=== PATIENT | female | born 1935 | race Caucasian/White ===

== ENCOUNTER 2024-10-08 16:20 | Outpatient (CLI) | payer MEDICARE, SELFPAY ==
[2024-10-08 16:56] LABS: Glucose Urine UA Negative (Normal); Nitrate Urine Negative (Negative); Specific Gravity, Urine 1.007 (1.005-1.030)
[2024-10-08 17:00] LABS: Add Urine Microscopic? YES
== END 2024-10-08 16:21 | disposition home or self-care (01) ==
PROVIDERS: PCP Family Medicine; Visit Provider Family Medicine
DX: N39.0 Urinary tract infection, site not specified (principal)
CPT/HCPCS: 81001; 87086

== ENCOUNTER 2024-10-10 12:48 | Observation (INO) | payer MEDICARE, SELFPAY ==
--- OUTSIDE RECORDS SUMMARY | 2023-12-31 04:00 | XMS_ITS ---
Author Organization [facility] Address [address] [facility] [place] [address] Care Team Providers Care City Planning Engineer Name Role Phone Rachelle Almaraz APRN Primary Care Provider Unavail able Jeny Blair Unavailable [phone] Migration, Provider Unavailable Unavailable REASON FOR VISIT EMR-Kavon Encounters Encounter Location Date Provider Diagnosis Migrated_Facility 0 0 12/31/2023 Provider Migration Plan Of Treatment No Information Progress Notes * Shannan FUNESDOB:[birth year] (89 yo F)Acc No.[id number]:12/31/2023 Patient: Shannan BELL :1935 A ge:88 Y S ex:Female [place] [place] [address] Subjective: * Chief Complaints: * E MR-Kavon * * Date:
--- OUTSIDE RECORDS SUMMARY | 2024-01-01 04:00 | XMS_ITS ---
Author Organization [facility] Address [address] [place] [address] Care Team Providers Care Brazing Machine Operator Automatic Name Role Phone Rachelle Almaraz APRN Primary Care Provider Unavail able Jeny Blair Unavailable [phone] Migration, Provider Unavailable Unavailable Allergies Allergen (clinical drug ingredient) Drug/Non Drug Allergy documented on EMR Reaction Allergy Type Onset Date Status Demerol HCl (meperidine) Unknown Drug Allergy Active codeine Codeine vomiting Drug Allergy Active meperidine Meperidine vomiting Drug Allergy Activ e morphine Morphine vomiting Drug Allergy Active REASON FOR VISIT EMR-Kavon Encounters Encounter Location Date Provider Diagnosis Migrated_Facility 0 0 01/01/2024 Provider Migration Plan Of Treatment No Information Progress Notes * Shannan FUNESDOB:[birth year] (89 yo F)Acc No.[id number]:01/01/2024 Patient: Shannan BELL :1935 A ge:88 Y S ex:Female Address: [address] [place] [address] Subjective: * Chief Complaints: * E MR-Kavon * Allergies: D emerol HCl (meperidine): AllergyMorphine: vomiting - Allergy - Criticality HighCodeine: vomiting - Allergy - Criticality HighMeperidine: vomiting - Allergy - Criticality High * * Date:
[2024-10-10] VITALS (10 sets, daily range): BP systolic 61–129; BP diastolic 37–99; PULSE 60–76; RESP 17–20; TEMP 36.8; O2SAT 91–100; BMI 27.3
--- NOTE | 2024-10-10 12:55 | ECG_ITS ---
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 Measurements Intervals Thomson Rate: 62 P: 0 [place]: 0 QRS: -28 QRSD: 114 T: 56 QT: 477 QTc: 485 Interpretive Statements Possible sinus rhythm BORDERLINE LEFT AXIS DEVIATION [QRS AXIS < -20] MODERATE INTRAVENTRICULAR CONDUCTION DELAY [110+ ms QRS DURATION] VOLTAGE CRITERIA FOR LVH [MEETS CRITERIA IN ONE OF: R(aVL), S(V1), R(V5), R(V5/V6)+S(V1)] NONSPECIFIC ST & T-WAVE ABNORMALITY PROLONGED QT INTERVAL No previous ECG available for comparison electrical artifacts, due to repeat the study Electronically Signed On 10-10-2024 22:49:04 CDT by Altaf Dawkins M.D. [email or web address] [id number]
--- NOTE | 2024-10-10 12:55 | XR_ITS ---
WS: [id number] XR chest 1V portable [id number] REASON FOR EXAM: sob FINDINGS: No previous examination for comparison. Mild tortuosity of the thoracic aorta. The heart is at the upper limits of normal in size. There are reticular interstitial opacities and mild parabronchial cuffing in both lower lungs of unknown chronicity. There is calcified granulomatous disease bilaterally with multiple calcified nodules in the left lower lung. There is atelectasis and consolidated lung along the left hemidiaphragm contour and blunting of the left costophrenic angle. Moderate dextroscoliosis of the thoracic spine with moderate degenerative spondylosis. XR/XR chest 1V portable [id number] IMPRESSION: Chest and pleural changes of unknown chronicity. Possibly acute or subacute con gestive failure, left lower lung pneumonitis.
--- OUTSIDE RECORDS SUMMARY | 2024-10-10 12:56 | XMS_ITS | Patient Health Record ---
Author Organization [facility] Address [address] [place] [address] Care Team Providers Care Residential Carpet Installer Name Role Phone Rachelle Almaraz APRN Primary Care Provider Unavail able Jeny Blair Unavailable [phone] Migration, Provider Unavailable Unavailable Allergies Allergen (clinical drug ingredient) Drug/Non Drug Allergy documented on EMR Reaction Allergy Type Onset Date Status Demerol HCl (meperidine) Unknown Drug Allergy Active codeine Codeine vomiting Drug Allergy Active meperidine Meperidine vomiting Drug Allergy Activ e morphine Morphine vomiting Drug Allergy Active Reason For Referral No Information Medications Medication SIG (Take, Route, Frequency, Duration) Notes Start Date End Date Status Torsemide 20 MG Tablet 1 tablet Orally twice daily Active metOLazone 2.5 MG Tablet 1 tablet Orally Once a day Active Symbicort 160-4.5 MCG/ACT Aerosol 2 puffs Inhalation Twice a day Active Acetaminophen PM 500-25 MG Tablet 1 tablet at bedtime as needed Orally Once a day Active Albuterol Sulfate (2.5 MG/3ML) 0.083% Nebulization Solution as directed Orally as needed Active Lyrica 50 MG Capsule 1 capsule Orally every 6 hrs as needed Not-Taking Levothyroxine Sodium 200 MCG Capsule 1 tablet in the morning on an empty stomach Orally Once a day Active PROzac 20 MG Capsule 1 capsule Orally Once a day Active Klor-Con 10 10 MEQ Tablet Extended Release 1 tablet with food Orally Twice a day Active Metoprolol Tartrate 25 MG Tablet 1 tablet with food Orally once a day Active Colestid 1 GM Tablet 2 tablets Orally Once a day; Duration: 30 day(s) Active Protonix 40 MG Tablet Delayed Release 1 tablet Orally Once a day Active Hydroxychloroquine Sulfate 200 MG Tablet as directed Orally BID Active Xanax 0.5 MG Tablet 1 tablet Orally once a day as needed Active Social History Tobacco Use: Social History Observation Description Date Details (start date - stop date) Never Smoker NA - NA Social History Drugs/Alcohol: Social Info Question Answer Notes Alcohol Screen (Audit-C) Did you have a drink containing alcohol in the past year? Yes How often did you have a drink containing alcohol in the past year? Monthly or less (1 point) How many drinks did you have on a typical day when you were drinking in the past year? 1 or 2 drinks (0 point) How often did you have 6 or more drinks on one occasion in the past year? Never (0 point) Points 1 Interpretation Negative Tobacco Use: Social Info Question Answer Notes xTobacco Use/Smoking Are you a nonsmoker Additional Details Category Social Info Options Details Miscellaneous: Marital status: Children: x2 : no serv ice Level of Education: Finished hig h school Problems Problem Type SNOMED Code ICD Code Onset Dates Problem Status W/U Status Risk Notes Problem Chronic kidney disease due to hypertension (386043606669065) Hypertensive chronic kidney disease with stage 1 through stage 4 chronic kidney disease, or unspecified chronic kidney disease (I12.9) Active confirmed Problem Benign hypertension (48865132) Hypertension, benign (I10) Active confirmed Problem Chronic blood loss anemia (231775315) Chronic blood loss anemia (D50.0) Active confirmed Problem History of nutritional deficiency (16954241331062) History of vitamin D deficiency (Z86.39) Active confirmed Problem Hypoalbuminemia (671165417) Hypoalbuminemia (E88.09) Active confirmed Problem Aortic valve sclerosis (97573886) Aortic valve sclerosis (I35.8) Active confirmed Problem 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 confirmed Problem Chronic kidney disease stage 3B (disorder) (881182230) Chronic kidney disease, stage 3b (N18.32) Active confirmed Problem Tricuspid valve disorder, non-rheumatic (135417648) 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) Active confirmed Problem Malignant essential hypertension (58755848) Essential hypertension, malignant (401.0) 2012 Active confirmed [id number] nomed Description:M alignant essential hypertension Encounters Encounter Location Date Provider Diagnosis Migrated_Facility 0 0 01/01/2024 Provider Migration Migrated_Facility 0 0 12/31/2023 Provider Migration Plan Of Treatment No Information Insurance Providers Payer Name Payer Address Payer Phone Subscriber Number Group Number Insured Name Patient Relationship to Insured Coverage Start Date Coverage End Date [facility] [email or web address] [address] [address] [place] [address] [id number] Shannan Bernal Self - patient is the insured Medical (General) History Medical History History ICD Code measles, mumps and chicken pox as a chil d hx pneumonia heart disease arthritis hx anemia hx bladder infections hx breast cancer back trouble hypertension hemorrhoids asthma hx bronchitis anxiety cataracts congestive heart failure gerd hypothyroidism irritable bowel syndrome sleep apnea thyroid goiter COVID (10/25) Surgical History Surgery Date(Month/Year) bilateral mastectomy hysterectomy tonsillectomy appendectomy carpal tunnel cholecystectomy thryoidectomy Hospitalization History Reason Date(Month/Year) see surgical hx
--- OUTSIDE RECORDS SUMMARY | 2024-10-10 12:56 | XMS_ITS | CCD ---
Author Name Interface, [id number] lity Address [facility] [place] [address] [facility] Address [address] [place] [address] Care Team Providers Care Occupational Therapist Assistant Name Role Phone Soledad MCNULTY, Meliton Unavailable Unavailable Allergies and Adverse Reactions Reason for Visit Medications Problems Social History
--- OUTSIDE RECORDS SUMMARY | 2024-10-10 12:56 | XMS_ITS ---
Author Name Interface, [id number] lity Address [facility] [place] [address] [facility] Address [address] [place] [address] Allergies and Adverse Reactions Plan Reason for Visit Encounters Medications Problems
--- OUTSIDE RECORDS SUMMARY | 2024-10-10 12:57 | XMS_ITS | Patient Health Record ---
Author Organization [facility] Address [address] [place] [id number] Care Team Providers Care Charging Car Operator Name Role Phone Non [facility] Provider, Provider Primary Care P Rachelle Morgan Unavailable [phone] Allergies Allergen (clinical drug ingredient) Drug/Non Drug Allergy documented on EMR Reaction Allergy Type Onset Date Status codeine Codeine Sulfate Unknown Drug Allergy A ctive meperidine Demerol Unknown Drug Allergy Active morphine Morphine Sulfate Unknown Drug Allergy Active Reason For Referral No Information Medications Medication SIG (Take, Route, Frequency, Duration) Notes Start Date End Date Status Pregabalin 50 MG 1 capsule Orally Once a day; Duration: 30 days 08/11/2020 Active Cefuroxime Axetil 500 MG 1 tablet Orally every 12 hrs; Duration: 7 day(s) 11/17/2020 Active cyanocobalamin 1000 mcg 1 ml IM Monthly; Duration: 90 days Active Levothyroxine Sodium 200 MCG TAKE 1 TABLET BY MOUTH EVERY MORNING ON AN EMPTY STOMACH.; Duration: 90 Active Metoprolol Tartrate 25 MG take one tablet by mouth twice daily with food Orally Twice a day; Duration: 90 days taking once daily Active AeroChamber Plus Enrike-Vu w/Mask - as directed orally daily; Duration: 30 days 08/23/2019 Active Albuterol Sulfate HFA 108 (90 Base) MCG/ACT 2 puffs as needed Inhalation every 6 hrs; Duration: 30 days PRN 02/05/2019 Active Torsemide 20 MG as directed Orally takes 2 tabs QAM per cardiology Active metolazone 2.5 MG 1 tablet Orally Once a day; Duration: 90 days QD PRN per ABDULAZIZ Ferrara Active Potassium Chloride ER 10 MEQ 2 tablets with food Orally Twice a day; Duration: 30 day(s) 08/06/2020 Active Budesonide 0.25 MG/2ML 2 ml Inhalation Once a day; Duration: 90 days Active Acetaminophen ER 650 MG 2 tablets as needed Orally every 8 hrs; Duration: 30 days PRN 04/09/2019 Active dexAMETHasone 6 MG 1 tablet Orally Once a day; Duration: 10 day(s) 10/27/2020 Active LORazepam 0.5 MG 1 tablet at bedtime as needed Orally Once a day; Duration: 30 days 10/08/2020 Active Sleep Aid 25 MG 1 tablet at bedtime as needed Orally Once a day PRN Active Gabapentin 300 MG 1 capsule Orally three times a day; Duration: 90 days no longer takig 06/10/2020 Not-Taking Protonix 40 MG 1 tablet daily orally 30 days Orally daily; Duration: 90 days Active Lidocaine HCl 4 % as directed Externally Twice a day; Duration: 30 days 10/31/2020 Active Immunizations Vaccine Route Administration Date Status Comme nts Pneumococcal 13-Private Stock IM Intramuscular 01/09/2019 Administered Pneumococcal (Pneumovax 23) IM Intramuscular 09/22/2020 Administered Flu Vac Quad 0.5 PRIVATE IM Intramuscular 01/09/2019 Administered Coronavirus Moderna #1 Unknown 04/15/2020 Administered 1st dose Covid vaccine given at [facility]. Moderna Coronavirus Moderna #1 Unknown 05/13/2020 Administ[facility] Moderna Social History Tobacco Use: Social History Observation Description Date Details (start date - stop date) Never Smoker NA - NA Sex Assigned At : Social History Observation Description Sex Assigned At Female - Question Answer Notes Did you have a drink contain ing alcohol in the past year? Yes How often did you have a dri nk containing alcohol in the past year? Two to four times a month (2 points) How often did you have six o r more drinks on one occasion in the past year? Never (0 points) Points 2 Interpretation Negative [place] Drug Questionnaire Question Answer Notes Have you used drugs other th an those for medical reasons in the past 12 months? No Do you smoke for age 13 and up Question Answer Notes Are you a: never smoker Smokeless Tobacco Question Answer Notes Tobacco use other than smoking No Have you ever had an STD Question Answer Notes Have you ever had an STD No Diabetic Retinal Eye Exam Question Answer Notes Date of exam 04/03/2020 CAGE-AID Questionnaire (2018 Edition)- Question Answer Notes Have you ever felt that you ought to cut down on your drinking or drug use? No Have people annoyed you by criticizing your drin medina or drug use? No Have you ever felt bad or guilty about your drin medina or drug use? No Have you ever had a drink or used drugs first thing in the morning to steady your nerves or to get rid of a hangover? No CAGE-AID Score 1 Problems Problem Type SNOMED Code ICD Code Onset Dates Problem Status W/U Status Risk Notes Problem Osteoarthritis (703131757) Osteoarthritis (M19.90) Active confirmed Problem Vitamin D deficiency (11376834) Vitamin D deficiency (E55.9) Active confirmed Problem Essential hypertension (95552717) Essential hypertension (I10) Active confirmed Problem Obstructive sleep apnea syndrome (26119285) LAURE (obstructive sleep apnea) (G47.33) Active confirmed Problem Irritable bowel syndrome with diarrhea (382846231) Irritable bowel syndrome with diarrhea (K58.0) Active confirmed Problem Anxiety (11622223) Anxiety (F41.9) Active confi rmed Problem Hyperlipidemia (61476735) Other and unspecified hyperlipidemia (E78.5) Active confirmed Problem Benign essential hypertension (9465040) Benign essential hypertension (I10) Active confirmed Problem Peripheral vascular disease (146535951) PAD (peripheral artery disease) (I73.9) Active confirmed Problem Hypothyroidism (30590689) Hypothyroidism, unspecified (E03.9) Active confirmed Problem Macrocytic anemia (45115006) Macrocytic anemia (D53.9) Active confirmed Problem Pernicious anemia (38057257) Pernicious anemia (D51.0) Active confirmed Problem Exacerbation of moderate persistent asthma (disorder) (548791808) Moderate persistent asthma with acute exacerbation (J45.41) Active confirmed Problem Supraventricular tachycardia (9462871) Supraventricular tachycardia (I47.1) Active confirmed Problem Vitamin D deficiency (64279002) Low vitamin D level (E55.9) Active confirmed Problem Esophageal reflux (639050260) Esophageal reflux (K21.9) Active confirmed Problem Chronic systolic heart failure (191576497) Chronic systolic congestive heart failure (I50.22) Active confirmed Problem Postsurgical hypothyroidism (87234723) 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) Active confirmed Problem Midline cystocele (558192417) Bladder prolapse, female, acquired (N81.10) Active confirmed Problem Iron deficiency anemia due to chronic blood loss (283567032) Iron deficiency anemia due to chronic blood loss (D50.0) Active confirmed Problem Moderate recurrent major depression (07237578) Moderate episode of recurrent major depressive disorder (F33.1) Active confirmed Problem Adjustment disorder (39158845) Situational stress (F43.9) Active confirmed Problem Scoliosis (722292326) Scoliosis of thoracolumbar spine, unspecified scoliosis type (M41.9) Active confirmed Problem Chronic diastolic heart failure (792011458) Chronic diastolic heart failure (I50.32) Active confirmed Problem Uncomplicated severe persistent asthma (641766125) Severe persistent asthma, unspecified whether complicated (J45.50) Active confirmed Problem Diastolic heart failure (129947887) Diastolic congestive heart failure, unspecified HF chronicity (I50.30) Active confirmed Problem Lumbosacral spondylosis without myelopathy (78567382) 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) Active confirmed Problem Lumbosacral spondylosis without myelopathy (74650181) Spondylosis of lumbosacral region with spinal osteoarthritis complication (M47.817) Active confirmed Problem Band neutrophil count above reference range (781033704) Increased band cell count (D72.825) Active confirmed Plan Of Treatment No Information Insurance Providers Payer Name Payer Address Payer Phone Subscriber Number Group Number Insured Name Patient Relationship to Insured Coverage Start Date Coverage End Date [facility] [address] [address] [place] [address] [id number] Shannan Bernal Self - patient is the insured Medications Administered Medication Instructions Date of Administration Dosage Notes Cyanocobalamin 2016 1000 ug Cyanocobalamin 06/09/2018 1000 mg Cyanocobalamin 07/14/2018 1000 ug Cyanocobalamin 10/03/2018 1000 ug Cyanocobalamin 04/19/2019 1000 ug Cyanocobalamin 05/02/2019 1000 ug Cyanocobalamin 05/08/2019 1000 ug Cyanocobalamin 09/14/2019 1000 ug Cyanocobalamin 09/18/2019 1000 ug Cyanocobalamin 09/19/2019 1000 ug Cyanocobalamin 09/20/2019 1000 ug Cyanocobalamin 09/24/2019 1000 ug Cyanocobalamin 09/25/2019 1000 ug Cyanocobalamin 09/26/2019 1000 ug Cyanocobalamin 10/05/2019 1000 ug Exp date Cyanocobalamin 10/08/2019 1000 ug patient brought medication Exp Date 06/25 Cyanocobalamin 10/15/2019 1000 ug Cyanocobalamin 10/22/2019 1000 ug LOT#: [id number] Exp Date: 06/2020 Cyanocobalamin 10/30/2019 1 mL Cyanocobalamin 11/23/2019 1000 ug Cyanocobalamin 12/28/2019 1000 ug Cyanocobalamin 02/22/2020 1000 ug Cyanocobalamin 03/25/2020 1000 ug Lot#: [id number] exp date: 06/2020 Cyanocobalamin 05/07/2020 1000 ug Lot: [id number] Exp Date: 06/2020 Cyanocobalamin 06/20/2020 1000 ug Lot# [id number] , exp 04/2021 Decadron LA 8mg 11/16/2013 8 mg Decadron LA 8mg 04/25/2014 8 mg Decadron LA 8mg 05/29/2015 8 mg Decadron LA 8mg 02/05/2019 8 mg Decadron SA 4mg/ml (dexamethasone) 11/16/2013 4 mg Decadron SA 4mg/ml (dexamethasone) 04/25/2014 4 mg Decadron SA 4mg/ml (dexamethasone) 05/29/2015 4 mg Decadron SA 4mg/ml (dexamethasone) 01/17/2018 4 mg Decadron SA 4mg/ml (dexamethasone) 12/18/2018 4 mg Decadron SA 4mg/ml (dexamethasone) 02/05/2019 4 mg Decadron SA 4mg/ml (dexamethasone) 08/23/2019 4 mg Decadron SA 4mg/ml (dexamethasone) 11/05/2019 4 mg Decadron SA 4mg/ml (dexamethasone) 12/27/2019 4 mg Depo Medrol 40mg 01/17/2018 40 mg Depo Medrol 40mg 08/23/2019 40 mg Depo Medrol 80mg 12/18/2018 80 mg Depo Medrol 80mg 11/05/2019 80 mg Depo Medrol 80mg 12/27/2019 80 mg Furosemide (Lasix) 11/06/2019 20 mg Furosemide (Lasix) 11/06/2019 20 mg Furosemide (Lasix) 12/28/2019 20 mg Furosemide (Lasix) 12/28/2019 20 mg Furosemide (Lasix) 01/21/2020 2 mL Furosemide (Lasix) 01/21/2020 2 mL Furosemide (Lasix) 03/14/2020 20 mg Furosemide (Lasix) 03/14/2020 20 mg Lidocaine 1% 11/16/2013 1 mL Lidocaine 2% 02/05/2019 2 mL Rocephin 500 mg (CEFTRIAXONE) 11/16/2013 500 mg Rocephin 500 mg (CEFTRIAXONE) 02/05/2019 500 mg Toradol 04/25/2014 60 mg Toradol 06/16/2015 60 mg Toradol 01/17/2018 60 mg Toradol 02/15/2018 60 mg Toradol 2018 60 mg Toradol 12/18/2018 60 mg Vit B12 (CYANOCOBALAMIN) 10/09/2018 1 mL Medical (General) History Medical History History ICD Code bladder prolapse bilateral mastectomy diarrhea Heart Cath normal 04/2018 pneumonia hypokalemia Surgical History Surgery Date(Month/Year) tonsillectomy 194 appendicitis 1955 partial hysterectomy 1964 bilateral mastectomy precancerous 1989 gallbladder thyroidectomy 1979 heart cath 03/27/2018 Hospitalization History Reason Date(Month/Year) childbirth tonsillectomy 194 abdominal pain pneumonia @ [facility] 02/2019 Hypokalemia @ [facility] 02/2019 partial hysterectomy 1964 bilateral mastectomy 1990 thyroidectomy 1980 hypokalemia, hyponatremia, shingles- [facility] 2020 hypokalemia, hyponatremia- [facility] 07/2020
[2024-10-10 13:15] LABS: Hematocrit 27.4 % (36-47); Hemoglobin 9.10 g/dL (11.27-16.99); Mean Corpuscular HGB Conc 33.2 g/dL (30-55); Mean Corpuscular Hemoglobin 33.7 pg (27-33); Mean Corpuscular Volume 101.5 fl (85-98); Nucleated Red Blood Cells % 0 %; Platelet Count 268 10^3/cmm (157-399); Red Blood Count 2.70 10^6/uL (3.85-5.65); White Blood Count 7.89 10^3/uL (3.29-11.43)
[2024-10-10 13:31] LABS: Alanine Aminotransferase 6 U/L (0-33); Albumin Level 3.6 g/dL (3.5-5.2); Alkaline Phosphatase 138 U/L (35-105); Anion Gap 20.3 (5-19); Aspartate Amino Transferase 21 U/L (0-32); Blood Urea Nitrogen 27 mg/dL (8-23); Calcium 7.2 mg/dL (8.5-10.5); Carbon Dioxide 27 mmol/L (22-29); Chloride 80 mmol/L (98-107); Creatinine Clr Calc Pharmacy 13.4617; Globulin 2.8 g/dL (1.3-4.6); Glucose 131 mg/dL (65-115); NT Pro B Type Natriuretic Pept 3882 pg/mL (0-450); Osmolality Calculated 265 mOsm/kg (285-295); Potassium 3.3 mmol/L (3.5-5.1); Sodium 124 mmol/L (136-145); Total Protein 6.4 g/dL (6.6-8.7)
--- NOTE | 2024-10-10 13:31 | W.ED.SOB ---
HPI - SOB/Dyspnea General: Chief Complaint: Shortness of Breath/Dyspnea Stated Complaint: SOB Time Seen by Provider: 10/10/24 12:53 Source: patient Mode of arrival: ambulatory Limitations: no limitations History of Present Illness: HPI Narrative: 89-year-old female who is here from [place] has a history of COPD and is currently on hospice. I did speak to patient's hospice nurse along with EMS she is on oxygen at baseline she has had some slight decline in mental status patient here does respond to verbal stimuli is able to tell me her name not really able answer any questions no known recent fever cough Related Data Home Medications ?Medication ?Instructions ?Recorded ?Confirmed albuterol sulfate 90 mcg/actuation 2 puff inhalation Q6H PRN 10/10/24 10/10/24 aerosol inhaler Shortness Of Breath budesonide-formoterol HFA 160 2 inh inhalation DAILY 10/10/24 10/10/24 mcg-4.5 mcg/actuation aerosol inhaler (Symbicort) cyanocobalamin (vitamin B-12) 1,000 mcg IM Q30D 10/10/24 10/10/24 1,000 mcg/mL injection solution dicyclomine 10 mg capsule 10 mg PO Q6H PRN Abdominal Pain 10/10/24 10/10/24 diphenoxylate-atropine 2.5 1 tab PO TID PRN Diarrhea 10/10/24 10/10/24 mg-0.025 mg tablet fluoxetine 40 mg capsule 40 mg PO DAILY 10/10/24 10/10/24 hydromorphone 2 mg tablet 2 mg PO Q4H PRN Pain 10/10/24 10/10/24 hyoscyamine sulfate 0.125 mg tablet 0.125 mg PO Q4H PRN Abdominal Pain 10/10/24 10/10/24 ipratropium 0.5 mg-albuterol 3 mg 3 ml inhalation QID PRN Shortness 10/10/24 10/10/24 (2.5 mg base)/3 mL nebulization Of Breath soln levocetirizine 5 mg tablet 5 mg PO DAILY 10/10/24 10/10/24 levothyroxine 200 mcg tablet 200 mcg PO DAILY 10/10/24 10/10/24 lidocaine 4 % topical patch See Rx Instructions .Route .COMPLEX 10/10/24 10/10/24 (Lidocaine Pain Relief) lorazepam 0.5 mg tablet 0.5 mg PO TID PRN Anxiety 10/10/24 10/10/24 lorazepam 2 mg/mL oral concentrate 0.5 mg sublingual Q4H PRN Anxiety 10/10/24 10/10/24 metoprolol tartrate 25 mg tablet 12.5 mg PO DAILY 10/10/24 10/10/24 morphine concentrate 100 mg/5 mL See Rx Instructions .Route 10/10/24 10/10/24 (20 mg/mL) oral solution .COMPLEX PRN Pain ondansetron HCl 4 mg tablet 4 mg PO Q4H PRN Nausea 10/10/24 10/10/24 pantoprazole 40 mg tablet,delayed 10 mg PO DAILY 10/10/24 10/10/24 release pregabalin 100 mg capsule 200 mg PO QPM 10/10/24 10/10/24 sennosides 8.6 mg-docusate sodium 1 - 2 tab PO DAILY PRN Constipation 10/10/24 10/10/24 50 mg tablet (Senna Plus) tizanidine 4 mg tablet 4 mg PO Q8H 10/10/24 10/10/24 torsemide 20 mg tablet 40 mg PO DAILY 10/10/24 10/10/24 Allergies Allergy/AdvReac Type Severity Reaction Status Date / Time codeine Allergy Unknown Verified 10/10/24 13:35 morphine Allergy Unknown Verified 10/10/24 13:36 Review of Systems General: Reports: ROS unobtainable due to mental status Physical Exam Const: COMMON NORMALS: negative for patient oriented x3 HENMT: COMMON NORMALS: normocephalic and atraumatic HEAD & SCALP: normocephalic and atraumatic Eye: COMMON NORMALS: conjunctivae normal CONJUNCTIVA: Yes conjunctivae normal Neck/C-Spine: COMMON NORMALS: full ROM and supple Chest: COMMONS NORMALS: normal inspection of the chest Resp: COMMON NORMALS: No retractions and No use of accessory muscles AUSCULTATION: wheezes Cardio: COMMON NORMALS: regular rate, regular rhythm and No murmurs present (Cardio) RATE: regular rate RHYTHM: regular rhythm Extremity: COMMON NORMALS: normal to inspection and full ROM Neuro: COMMON NORMALS: moves all extremities and no focal motor deficits; negative for patient oriented x3 Psych: COMMON NORMALS: cooperative Skin: COMMON NORMALS: no rashes or lesions noted and no wounds GENERAL SKIN EXAM: no rashes or lesions noted Course Vital Signs: Vital signs: Vital Signs Temperature 98.3 F 10/10/24 12:56 Pulse Rate 74 10/10/24 14:52 Respiratory Rate 18 10/10/24 13:24 Blood Pressure 106/59 10/10/24 14:52 Pulse Oximetry 95 10/10/24 14:52 Oxygen Delivery Me thod Nasal Cannula 10/10/24 14:52 Oxygen Flow Rate 3 10/10/24 14:52 MDM - SOB/Dyspnea Medical Decision Making Patient presents here with altered mental status originally she is now awake alert and able answer all my questions she is hyponatremic and acute kidney injury likely causing some of her confusion she is now ANO x 4 I did discuss with her and family at length they state they are they not want her on hospice at this time and want her admitted to treat her hyponatremia patient states she does not want any extensive procedures though does want to be DNR if she is on Levophed this time she did not want a central line Medical Records I reviewed the patient's medical records. Lab Data I reviewed the patient's lab results. 10/10/24 12:59 10/10/24 12:59 Labs/Radiology: Radiology Impressions Chest X-Ray 10/10/24 12:55 IMPRESSION: Chest and pleural changes of unknown chronicity. Possibly acute or subacute congestive failure, left lower lung pneumonitis. Head CT 10/10/24 13:38 IMPRESSION: 1. No acute intracranial hemorrhage or edema. 2. Mild cerebral and cerebellar atrophy and small vessel disease. Laboratory Results WBC 7.89 10^3/uL (3.29-11.43) 10/10/24 12:59 RBC 2.70 10^6/uL (3.85-5.65) L 10/10/24 12:59 Hgb 9.10 g/dL (11.27-16.99) L 10/10/24 12:59 Hct 27.4 % (36-47) L 10/10/24 12:59 MCV 101.5 fl (85-98) H 10/10/24 12:59 MCH 33.7 pg (27-33) H 10/10/24 12:59 MCHC 33.2 g/dL (30-55) 10/10/24 12:59 RDW 16.8 % (12.1-15.1) H 10/10/24 12:59 Plt Count 268 10^3/cmm (157-399) 10/10/24 12:59 MPV 11.9 fL (7.4-10.4) H 10/10/24 12:59 Neut % (Auto) 68.5 % 10/10/24 12:59 Lymph % (Auto) 14.6 % 10/10/24 12:59 [place] % (Auto) 14.4 % 10/10/24 12:59 Eos % (Auto) 0.1 % 10/10/24 12:59 Baso % (Auto) 1.3 % 10/10/24 12:59 Neut # (Auto) 5.40 10^3/uL (1.8-7.7) 10/10/24 12:59 Lymph # (Auto) 1.2 10^3/uL (0.8-4.8) 10/10/24 12:59 [place] # (Auto) 1.1 10^3/uL (0.2-0.9) H 10/10/24 12:59 Eos # (Auto) 0.0 10^3/uL (0.0-0.8) 10/10/24 12:59 Baso # (Auto) 0.1 10^3/uL (0.0-0.1) 10/10/24 12:59 Nucleated RBC % (auto) 0 % 10/10/24 12:59 Nucleated RBCs # 0.0 /100WBC 10/10/24 12:59 Specimen Type Arterial 10/10/24 13:23 Sample Site Brachial, right 10/10/24 13:23 ABG pH 7.40 (7.35-7.45) 10/10/24 13:23 ABG pCO2 46.5 mmHg (35-45) H 10/10/24 13:23 ABG pO2 98.1 mmHg (80.0-100.0) 10/10/24 13:23 ABG HCO3 29.1 mmol/L (22-26) H 10/10/24 13:23 ABG Base Excess 3.8 mmol/L (-2.0-2.0) H 10/10/24 13:23 Reza Test Pos 10/10/24 13:23 Hematocrit 27.1 % (37-47) L 10/10/24 13:23 Hgb O2 Saturation 95.7 % (95-100) 10/10/24 13:23 Carboxyhemoglobin 1.3 %THgb (0.4-20.1) 10/10/24 13:23 Methemoglobin 1.1 % (0.4-1.5) 10/10/24 13:23 Total Hemoglobin 8.8 g/dL (12-16) L 10/10/24 13:23 O2 Delivery Device Nc 10/10/24 13:23 O2 Liters/Min 4.0 % 10/10/24 13:23 Diesel Mechanic Helper ID [place] 10/10/24 13:23 Sodium 124 mmol/L (136-145) L 10/10/24 12:59 Potassium 3.3 mmol/L (3.5-5.1) L 10/10/24 12:59 Chloride 80 mmol/L (98-107) L 10/10/24 12:59 Carbon Dioxide 27 mmol/L (22-29) 10/10/24 12:59 Anion Gap 20.3 (5-19) H 10/10/24 12:59 BUN 27 mg/dL (8-23) H 10/10/24 12:59 Creatinine 3.3 mg/dL (0.5-0.9) H 10/10/24 12:59 GFR Calculation Not Reportable 10/10/24 12:59 Glucose 131 mg/dL (65-115) H 10/10/24 12:59 Calculated Osmolality 265 mOsm/kg (285-295) L 10/10/24 12:59 Calcium 7.2 mg/dL (8.5-10.5) L 10/10/24 12:59 Total Bilirubin 0.6 mg/dL (0.15-1.2) 10/10/24 12:59 AST 21 U/L (0-32) 10/10/24 12:59 ALT 6 U/L (0-33) 10/10/24 12:59 Alkaline Phosphatase 138 U/L (35-105) H 10/10/24 12:59 NT-Pro-B Natriuret Pep 3882 pg/mL (0-450) H 10/10/24 12:59 Total Protein 6.4 g/dL (6.6-8.7) L 10/10/24 12:59 Albumin 3.6 g/dL (3.5-5.2) 10/10/24 12:59 Globulin 2.8 g/dL (1.3-4.6) 10/10/24 12:59 All radiology interpretation(s) finalized by discharge EKG Data EKG 1: I personally reviewed and interpreted this EKG as follows: EKG Interpretation Date: 10/10/24 EKG interpretation time: 13:02 Interpretation: nsr hr [address] elevation qrs 114 qtc 481 Discharge Plan Discharge Patient Disposition: Admitted As Inpatient Clinical Impression: Acute kidney injury, Hyponatremia Condition: Stable Coding Level of Care Code ED Mine Car Mechanic for Siria Bonilla
[2024-10-10 13:34] LABS: ABG PCO2 46.5 mmHg (35-45); ABG PH Result 7.40 (7.35-7.45); Arterial Blood Gas Hematocrit 27.1 % (37-47); Blood Gas Allen Test Pos; Blood Gas LPM 4.0 %; Blood Gas Operator Identificat WALCI; Blood Gas Sample Site Brachial, right; Blood Gas Sample Type Arterial; Carboxyhemoglobin 1.3 %THgb (0.4-20.1); HCO3 ABG 29.1 mmol/L (22-26); Methemoglobin 1.1 % (0.4-1.5); PO2 ABG 98.1 mmHg (80.0-100.0)
[2024-10-10] MEDS: methylPREDNISolone sod succ 125 mg/2 mL INJ IV (13:35)
--- NOTE | 2024-10-10 13:38 | CT_ITS ---
WS: [id number] CT HEAD NONCONTRAST HISTORY: ams TECHNIQUE: Contiguous axial imaging performed through the brain. Bone and soft tissue windows. Sagittal and coronal reformats reviewed. All CT scans at [facility] use at least one of these dose optimization techniques: automated exposure control; mA and/or kV adjustment per patient size (includes targeted exams where dose is matched to clinical indication); or iterative reconstruction. DLP: 2447.64 mGy.cm COMPARISON: None available. No acute intracranial hemorrhage, midline shift or mass effect. Mild atrophy and small vessel disease. Mild cerebellar atrophy. Ventricles: Normal size with no hydrocephalus. Paranasal sinuses: As visualized are clear. Mastoid air cells: Well pneumatized. Calvarium and scalp: Hyperostosis frontalis interna. No skull fracture. CT/CT head wo con* [id number] IMPRESSION: 1. No acute intracranial hemorrhage or edema. 2. Mild cerebral and cerebellar atrophy and small vessel disease.
[2024-10-10] MEDS: norepinephrine 4 MG/250 ML BAG 30 MG IV (14:49)
[2024-10-10] MEDS: piperacillin-tazobactam 4.5 GM in sodium chloride 0.9% (plus) 50 ML IV (15:12)
--- NOTE | 2024-10-10 16:50 | PM.HP ---
Providers/Chief Complaint Admitting Physician: Meseret Piedra MD Primary Care Provider: Bony Bhagat MD Chief Complaint: SOB History of Present Illness Shannan Bernal is a 89 year old female with a PMH CKD, lupus, heart failure,tremors who is on hospice at [facility]. Patient is from [place], [place] and moved to [place] a few weeks ago on hospice as she was unable to carry on her ADLs. She is brought to the ER today with c/o having had more shaking than usual and being found be somehwat lethargic. Hospice was called to evaluate the patient, BP was low, her family elected to call the ambulance and bring her to the ER. She was found to be hypotensive here with SBP 60s-70s. She denies any new complaints other than her usual pains. She had been started on levophed in the ER and was on 6mcg at the time of this exam. Patient is currently awake, alert and oriented x 4..She is able to tell me her name, age, , month and year and knows she is in the hospital. She gives me her PMH of above comorbidities and tells me that she used to live in [place]. States she was tired of being in chronic pain and had elected to make herself hospice and then moved into [place]. I discussed with her that she was hypotensive on arrival today, this maybe related to polypharmacy, opiate use vs infection such as UTI or pneumonia. I discussed with her that she is on pressors with plan to be taken to ICU on IV fluids, Iv abx and pressors. She states that she does not want any of the interventions that she is currently on. She is clearly able to state her wishes to discontinue pressors, discontinue iv abx, discontinue iv fluids and to be just kept comfortable and let nature take its course. She states that she anticipated she may be approaching end of life and had made the decision to transition to hospice weeks ago with the intention of being kept comfortable without any aggressive medical interventions. She states that she would like us to honor her wishes and discontinue all life prolonging measures. She is willing to take oral antibiotics at this time. She understands that with withdrawal of pressors, she will likely keep dropping her BP and may pass away. She states that she would just like to pass peacefully. Patient's stated wishes were communicated with her daughter Soniya who agrees to honor her mother's stated wishes. Review of Systems General: Reports: 10 or more systems reviewed and unremarkable except in HPI and below Const: Denies: fever(s), chills or body aches Eyes: Denies: change in vision, blurry vision or photophobia ENMT: Reports: hoarseness; Denies: throat pain, enlarged tonsils, odynophagia or nasal congestion Card: Denies: chest pain, palpitations, irregular heart rhythm, edema, swelling of feet/ankles, lightheadedness, pre-syncope, dyspnea on exertion or orthopnea Resp: Denies: dyspnea, productive cough, non-productive cough, wheezing, stridor, pain on inspiration, change in phlegm color, hemoptysis or chest congestion GI: Denies: abdominal pain, nausea, vomiting, hematemesis, coffee ground emesis, dysphagia, heartburn, diarrhea, constipation, GI cramping, change in stool character, hematochezia or melena : Denies: flank pain, difficulty voiding, dysuria, urinary frequency, urinary urgency, urinary hesitancy or hematuria Musc: Denies: neck pain, back pain, extremity pain, joint swelling, joint warmth or deformity Neuro: Denies: headache(s), numbness in extremities, weakness in extremities, sensory changes, difficulty walking, frequent falls, dizziness, vertigo, behavioral changes, Slurred speech present or seizure-like activity Psych: Denies: anxiety, depression, suicidal ideation or homicidal ideation Endo: Denies: polyuria, polydipsia, tired all the time, cold intolerance or hot flashes Ealdio/Lymph: Denies: easy bruising or easy bleeding Medications/Allergies Home Medications ?Medication ?Instructions ?Recorded ?Confirmed ?Last Taken ?Type albuterol sulfate 90 mcg/actuation 2 puff inhalation Q6H PRN 10/10/24 10/10/24 Unknown History aerosol inhaler Shortness Of Breath budesonide-formoterol HFA 160 2 inh inhalation DAILY 10/10/24 10/10/24 10/10/24 History mcg-4.5 mcg/actuation aerosol inhaler (Symbicort) cyanocobalamin (vitamin B-12) 1,000 mcg IM Q30D 10/10/24 10/10/24 10/05/24 History 1,000 mcg/mL injection solution dicyclomine 10 mg capsule 10 mg PO Q6H PRN Abdominal Pain 10/10/24 10/10/24 Unknown History diphenoxylate-atropine 2.5 1 tab PO TID PRN Diarrhea 10/10/24 10/10/24 Unknown History mg-0.025 mg tablet fluoxetine 40 mg capsule 40 mg PO DAILY 10/10/24 10/10/24 10/10/24 History hydromorphone 2 mg tablet 2 mg PO Q4H PRN Pain 10/10/24 10/10/24 Unknown History hyoscyamine sulfate 0.125 mg tablet 0.125 mg PO Q4H PRN Abdominal Pain 10/10/24 10/10/24 Unknown History ipratropium 0.5 mg-albuterol 3 mg 3 ml inhalation QID PRN Shortness 10/10/24 10/10/24 Unknown History (2.5 mg base)/3 mL nebulization Of Breath soln levocetirizine 5 mg tablet 5 mg PO DAILY 10/10/24 10/10/24 10/10/24 History levothyroxine 200 mcg tablet 200 mcg PO DAILY 10/10/24 10/10/24 10/10/24 History lidocaine 4 % topical patch See Rx Instructions .Route .COMPLEX 10/10/24 10/10/24 Unknown History (Lidocaine Pain Relief) lorazepam 0.5 mg tablet 0.5 mg PO TID PRN Anxiety 10/10/24 10/10/24 Unknown History lorazepam 2 mg/mL oral concentrate 0.5 mg sublingual Q4H PRN Anxiety 10/10/24 10/10/24 Unknown History metoprolol tartrate 25 mg tablet 12.5 mg PO DAILY 10/10/24 10/10/24 10/10/24 History morphine concentrate 100 mg/5 mL See Rx Instructions .Route 10/10/24 10/10/24 Unknown History (20 mg/mL) oral solution .COMPLEX PRN Pain ondansetron HCl 4 mg tablet 4 mg PO Q4H PRN Nausea 10/10/24 10/10/24 Unknown History pantoprazole 40 mg tablet,delayed 10 mg PO DAILY 10/10/24 10/10/24 10/10/24 History release pregabalin 100 mg capsule 200 mg PO QPM 10/10/24 10/10/24 10/09/24 History sennosides 8.6 mg-docusate sodium 1 - 2 tab PO DAILY PRN Constipation 10/10/24 10/10/24 Unknown History 50 mg tablet (Senna Plus) tizanidine 4 mg tablet 4 mg PO Q8H 10/10/24 10/10/24 10/10/24 History torsemide 20 mg tablet 40 mg PO DAILY 10/10/24 10/10/24 10/10/24 History Allergies Allergy/AdvReac Type Severity Reaction Status Date / Time codeine Allergy Unknown Verified 10/10/24 13:35 morphine Allergy Unknown Verified 10/10/24 13:36 PFSH Acute PFSH: Medical History (Updated 10/10/24 @ 23:34 by Meseret Piedra MD) Lupus CKD (chronic kidney disease) Vitals/I&O/Wt Last Vital Signs Temp 98.3 F 10/10/24 12:56 Pulse 74 10/10/24 14:52 Resp 18 10/10/24 13:24 BP 106/59 10/10/24 14:52 Pulse Ox 95 10/10/24 14:52 O2 Del Method Nasal Cannula 10/10/24 14:52 O2 Flow Rate 3 10/10/24 14:52 Weight last 48 hrs Weight 81.647 kg Physical Exam Narrative: General: No acute distress, AO x3, currently on nasal canula HEENT: PERRLA, pupils bilaterally equal and reactive, pallors not present Chest: Normal vesicular breath sounds, no added sounds, equal good air entry bilaterally CVS: S1-S2 regular, no murmurs, no tachycardia, no gallops, no rubs Abdomen: Soft, nontender, no organomegaly, bowel sounds present Neuro: No focal deficits, no facial deformity, AO x3, power 5/5 in all limbs Data 10/10/24 12:59 10/10/24 12:59 Micro: Microbiology 10/10/24 15:12 Blood Culture - Preliminary Blood SPECIMEN COLLECTED 10/10/24 15:07 Blood Culture - Preliminary Blood SPECIMEN COLLECTED A&P Assessment and plan 1. Hyponatremia: 2. Need for comfort care: 3. Hypotension: 4. UTI (urinary tract infection): 5. Acute kidney injury: Plan: 89 year old lady with comorbidities as above, on hospice, brought to the hospital today with hypotension, hyponatremia and UTI. Patient wishes to be on comfort care management only with no iv medications , fluids or pressors. We will discontinue all of these in keeping with her wishes. She is agreeable to take oral abx will start her on Cefdinir 300mg BID. Comfort care management per protocol PDMP PDMP Reviewed: Not Reviewed Attestations Medical Necessity Statement*: comfort care management , less than 2 midnight stay anticipated Coding Level of Care Code Acute Code for Chg Fwd High Time for a total of 60 minutes, includes reviewing past or interval history, examining/interviewing patient, placing orders, counseling patient/family/other support, updating patient/family/other support, discussing plan of care with staff, communicating with other healthcare providers, documenting encounter and coordinating care Diagnoses Hyponatremia E87.1 Need for comfort care Hypotension I95.9 UTI (urinary tract infection) N39.0 Acute kidney injury N17.9
[2024-10-10] MEDS: LORazepam 1 MG/0.5 ML injection IVP (17:24)
[2024-10-10 18:33] LABS: Respiratory Syncytial Virus Ce NEGATIVE (Negative); SARS-CoV-2 PCR NEGATIVE (Negative)
[2024-10-11 03:28] VITALS: BP 90/62; PULSE 72; RESP 16; TEMP 36.8; O2SAT 95
[2024-10-11 07:23] VITALS: BP 139/61; PULSE 80; RESP 17; TEMP 36.8; O2SAT 90
--- NOTE | 2024-10-11 10:06 | P.DS_ITS ---
Discharge Providers Date of Admission: 10/10/24 18:08 Date of Discharge: October 11, 2024 Attending Provider at Admission: Meseret Piedra MD Attending Provider at Discharge: Meseret Piedra MD Primary Care Provider: Bony Bhagat MD Diagnoses at Discharge Discharge Diagnosis 1. Hyponatremia: 2. Need for comfort care: 3. Hypotension: 4. UTI (urinary tract infection): 5. Acute kidney injury: Reason for Visit Reason for Visit: SOB Hospital Course Hospital Course 89 year old female with a H CKD, lupus, heart failure,tremors who is on hospice at [facility] living was brought to ER for hypotension and lethargy at the request of her family to call for an ambulance in spite of hospice check at the facility. Patient was initially lethargic and hypotensive On ER arrival. she received pressors and iv fluids and iv abx for UTI. BY the time she was assessed for admission, she was alert, awake, oriented, able to provide all her history and clearly state her wishes. Patient insisted on her desire to remain on hospice, and to exclusively only have comfort care managament. She declined pressors. She was agreeable to oral abx and she was transitioned to oral cefdinir. Patient was managed on comfort care protocol only per her clearly stated wishes. She remained alert awake by next morning. Bp had improved. She wished to [facility], avonted living on hospice and was discharged today . plan of care was additionally discussed with patient's daughter at [facility]. Physical Exam Narrative: General: No acute distress, AO x3 HEENT: PERRLA, pupils bilaterally equal and reactive, pallors not present Neuro: No focal deficits, no facial deformity, AO x3, power 5/5 in all limbs Discharge Data Studies Completed and Pending Completed Studies During Hospitalization Category Date Time Status CT head wo con* [id number] Stat Cat Scan 10/10/24 13:38 Completed XR chest 1V portable [id number] Stat Exams 10/10/24 12:55 Completed Radiology Impressions Chest X-Ray 10/10/24 12:55 IMPRESSION: Chest and pleural changes of unknown chronicity. Possibly acute or subacute congestive failure, left lower lung pneumonitis. Head CT 10/10/24 13:38 IMPRESSION: 1. No acute intracranial hemorrhage or edema. 2. Mild cerebral and cerebellar atrophy and small vessel disease. Laboratory Results WBC 7.89 10^3/uL (3.29-11.43) 10/10/24 12:59 RBC 2.70 10^6/uL (3.85-5.65) L 10/10/24 12:59 Hgb 9.10 g/dL (11.27-16.99) L 10/10/24 12:59 Hct 27.4 % (36-47) L 10/10/24 12:59 MCV 101.5 fl (85-98) H 10/10/24 12:59 MCH 33.7 pg (27-33) H 10/10/24 12:59 MCHC 33.2 g/dL (30-55) 10/10/24 12:59 RDW 16.8 % (12.1-15.1) H 10/10/24 12:59 Plt Count 268 10^3/cmm (157-399) 10/10/24 12:59 MPV 11.9 fL (7.4-10.4) H 10/10/24 12:59 Neut % (Auto) 68.5 % 10/10/24 12:59 Lymph % (Auto) 14.6 % 10/10/24 12:59 [place] % (Auto) 14.4 % 10/10/24 12:59 Eos % (Auto) 0.1 % 10/10/24 12:59 Baso % (Auto) 1.3 % 10/10/24 12:59 Neut # (Auto) 5.40 10^3/uL (1.8-7.7) 10/10/24 12:59 Lymph # (Auto) 1.2 10^3/uL (0.8-4.8) 10/10/24 12:59 [place] # (Auto) 1.1 10^3/uL (0.2-0.9) H 10/10/24 12:59 Eos # (Auto) 0.0 10^3/uL (0.0-0.8) 10/10/24 12:59 Baso # (Auto) 0.1 10^3/uL (0.0-0.1) 10/10/24 12:59 Nucleated RBC % (auto) 0 % 10/10/24 12:59 Nucleated RBCs # 0.0 /100WBC 10/10/24 12:59 Specimen Type Arterial 10/10/24 13:23 Sample Site Brachial, right 10/10/24 13:23 ABG pH 7.40 (7.35-7.45) 10/10/24 13:23 ABG pCO2 46.5 mmHg (35-45) H 10/10/24 13:23 ABG pO2 98.1 mmHg (80.0-100.0) 10/10/24 13:23 ABG HCO3 29.1 mmol/L (22-26) H 10/10/24 13:23 ABG Base Excess 3.8 mmol/L (-2.0-2.0) H 10/10/24 13:23 Reza Test Pos 10/10/24 13:23 Hematocrit 27.1 % (37-47) L 10/10/24 13:23 Hgb O2 Saturation 95.7 % (95-100) 10/10/24 13:23 Carboxyhemoglobin 1.3 %THgb (0.4-20.1) 10/10/24 13:23 Methemoglobin 1.1 % (0.4-1.5) 10/10/24 13:23 Total Hemoglobin 8.8 g/dL (12-16) L 10/10/24 13:23 O2 Delivery Device Nc 10/10/24 13:23 O2 Liters/Min 4.0 % 10/10/24 13:23 Library Circulation Assistant ID [place] 10/10/24 13:23 Sodium 124 mmol/L (136-145) L 10/10/24 12:59 Potassium 3.3 mmol/L (3.5-5.1) L 10/10/24 12:59 Chloride 80 mmol/L (98-107) L 10/10/24 12:59 Carbon Dioxide 27 mmol/L (22-29) 10/10/24 12:59 Anion Gap 20.3 (5-19) H 10/10/24 12:59 BUN 27 mg/dL (8-23) H 10/10/24 12:59 Creatinine 3.3 mg/dL (0.5-0.9) H 10/10/24 12:59 GFR Calculation Not Reportable 10/10/24 12:59 Glucose 131 mg/dL (65-115) H 10/10/24 12:59 Calculated Osmolality 265 mOsm/kg (285-295) L 10/10/24 12:59 Calcium 7.2 mg/dL (8.5-10.5) L 10/10/24 12:59 Total Bilirubin 0.6 mg/dL (0.15-1.2) 10/10/24 12:59 AST 21 U/L (0-32) 10/10/24 12:59 ALT 6 U/L (0-33) 10/10/24 12:59 Alkaline Phosphatase 138 U/L (35-105) H 10/10/24 12:59 NT-Pro-B Natriuret Pep 3882 pg/mL (0-450) H 10/10/24 12:59 Total Protein 6.4 g/dL (6.6-8.7) L 10/10/24 12:59 Albumin 3.6 g/dL (3.5-5.2) 10/10/24 12:59 Globulin 2.8 g/dL (1.3-4.6) 10/10/24 12:59 Influenza A (PCR) Negative (Negative) 10/10/24 16:16 Influenza Type B (PCR) Negative (Negative) 10/10/24 16:16 RSV (PCR) Negative (Negative) 10/10/24 16:16 SARS-CoV-2 (PCR) Negative (Negative) 10/10/24 16:16 Vitals Last Vital Signs Temp 98.1 F 10/11/24 11:42 Pulse 70 10/11/24 11:42 Resp 16 10/11/24 11:42 BP 105/58 10/11/24 11:42 Pulse Ox 90 10/11/24 11:42 O2 Del Method Nasal Cannula 10/11/24 11:42 O2 Flow Rate 0.25 10/11/24 11:42 Discharge Plan Discharge Patient Disposition: Hospice - Medical Facility Condition: Stable Prescriptions: Continued morphine concentrate 100 mg/5 mL (20 mg/mL) solution See Rx Instructions .ROUTE .COMPLEX PRN (Reason: Pain) Rx Instructions: TAKE 0.25ML (5MG) BY MOUTH EVERY 4 HOURS NEEDED FOR MILD PAIN OR 1.0ML EVERY 2 HOURS FOR MODERATE TO SEVERE PAIN. ondansetron HCl 4 mg Tablet 4 mg PO Q4H PRN (Reason: Nausea) sennosides-docusate sodium [Senna Plus] 8.6-50 mg tablet 1 - 2 tab PO DAILY PRN (Reason: Constipation) diphenoxylate-atropine 2.5-0.025 mg tablet 1 tab PO TID PRN (Reason: Diarrhea) lorazepam 0.5 mg tablet 0.5 mg PO TID PRN (Reason: Anxiety) pantoprazole 40 mg tablet,delayed release (DR/EC) 10 mg PO DAILY cyanocobalamin (vitamin B-12) 1,000 mcg/mL solution 1,000 mcg IM Q30D albuterol sulfate 90 mcg/actuation HFA aerosol inhaler 2 puff INHALATION Q6H PRN (Reason: Shortness Of Breath) lorazepam 2 mg/mL concentrate 0.5 mg sublingual Q4H PRN (Reason: Anxiety) dicyclomine 10 mg capsule 10 mg PO Q6H PRN (Reason: Abdominal Pain) metoprolol tartrate 25 mg tablet 12.5 mg PO DAILY pregabalin 100 mg capsule 200 mg PO QPM fluoxetine 40 mg capsule 40 mg PO DAILY ipratropium-albuterol 0.5 mg-3 mg(2.5 mg base)/3 mL solution for nebulization 3 ml INHALATION QID PRN (Reason: Shortness Of Breath) torsemide 20 mg Tablet 40 mg PO DAILY lidocaine [Lidocaine Pain Relief] 4 % adhesive patch,medicated See Rx Instructions .ROUTE .COMPLEX Rx Instructions: APPLY 1 PATCH TOPICALLY TO PAINFUL AREA. LEAVE IN PLACE FOR UP TO 8 TO 12 HOURS. USE DAILY FOR ARTHRITIC PAIN. tizanidine 4 mg tablet 4 mg PO Q8H hydromorphone 2 mg tablet 2 mg PO Q4H PRN (Reason: Pain) hyoscyamine sulfate 0.125 mg Tablet 0.125 mg PO Q4H PRN (Reason: Abdominal Pain) levothyroxine 200 mcg Tablet 200 mcg PO DAILY budesonide-formoterol [Symbicort] 160-4.5 mcg/actuation Hfa Aerosol Inhaler 2 inh INHALATION DAILY levocetirizine 5 mg tablet 5 mg PO DAILY Discharge Order = DC NOW: Discharge Order (Routine); Ordered 10/11/24 Ordered By: Meseret Piedra Referrals: [facility] [Outside] [facility] [Outside] Bony Bhagat MD [Primary Care Provider, Family Practice] Patient Instructions: Cefdinir (By mouth) Discharge Attestations Time Spent in Discharge Care*: greater than 30 min Quality Metrics Clinical Quality Measures [ No reported AMI, CVA or VTE this stay] Coding Level of Care Code Acute Code for Chg Fwd Diagnoses Hyponatremia E87.1 Need for comfort care Hypotension I95.9 UTI (urinary tract infection) N39.0 Acute kidney injury N17.9
[2024-10-11 11:42] VITALS: BP 105/58; PULSE 70; RESP 16; TEMP 36.7; O2SAT 90
--- NOTE | 2024-10-11 12:03 | PC.NURSE ---
Addendum entered by Kelli Weldon LPN 10/11/24 12:22: this nurse spoke with Ama at [facility] and gave report at this time. [facility] is coming to transport resident back to facility. Original Note: this nurse attempted to call report at this time. nurse was with family and would call back per department secretary.
== END 2024-10-11 12:47 | disposition hospice, inpatient (51) ==
LOC: ER 15:25 → MEDSURG 18:08
PROVIDERS: Admitting Provider Student in an Organized Health Care Education/Training Program; Emergency Provider Emergency Medicine; PCP Family Medicine; Visit Provider Student in an Organized Health Care Education/Training Program
DX: I95.9 Hypotension, unspecified (principal); E87.1 Hypo-osmolality and hyponatremia; N39.0 Urinary tract infection, site not specified; N17.9 Acute kidney failure, unspecified; K21.9 Gastro-esophageal reflux disease without esophagitis; Z79.891 Long term (current) use of opiate analgesic; Z51.5 Encounter for palliative care; N18.9 Chronic kidney disease, unspecified; J44.9 Chronic obstructive pulmonary disease, unspecified; Z99.81 Dependence on supplemental oxygen
CPT/HCPCS: 36415; 36600; 70450; 71045; 80053; 82805; 83880; 85025; 87040; 87637; 93005; 94640; 96365; 96367; 96375; 99285; G0378; J2060; J2543; J2919; J3373; J7030; J7050; J7613; J9999